=== PATIENT | female | born 2000 | race Caucasian/White ===

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

== ENCOUNTER 2023-06-27 12:32 | Emergency (ER) | payer MEDICAID ==
[~2023-06-27] VITALS: Ht 162.6 cm; Wt 98.0 kg
[2023-06-27 12:46] VITALS: BP 136/92; PULSE 73; RESP 20; TEMP 98.8; O2SAT 100
[2023-06-27 13:36] LABS: BASOPHILS % 0.4 % (0.0-2.0); HEMATOCRIT. 37.3 % (36.0-48.0); HEMOGLOBIN. 12.7 g/dL (12.0-16.0); LYMPHOCYTES % 26.1 % (20.0-50.0); MEAN CORPUSCULAR HEMOGLOBIN 27.8 pg (28.0-32.0); MEAN CORPUSCULAR VOLUME 81.5 fL (81.0-99.0); MEAN PLATELET VOLUME 7.6 fl (7.4-10.4); MONOCYTES % 8.3 % (2.0-8.0); NEUTROPHILS % 63.2 % (40.0-76.0); PLATELET 364 x1000/uL (130-400); RED BLOOD CELL COUNT 4.58 mill/uL (4.2-5.4); RED CELL DISTRIBUTION WIDTH 14.7 % (11.6-14.6)
[2023-06-27 13:45] LABS: CHLORIDE 107 mEq/L (98-107)
[2023-06-27 13:46] LABS: PROTHROMBIN TIME 10.9 sec (9.6-11.0)
== END 2023-06-27 15:55 | disposition home or self-care (01) ==
LOC: ER 12:32
DX: F41.9 Anxiety disorder, unspecified (principal); R07.89 Other chest pain; F12.10 Cannabis abuse, uncomplicated; Z88.0 Allergy status to penicillin
CPT/HCPCS: 36415; 71045; 80053; 84484; 85025; 93005; 99285

== ENCOUNTER 2024-08-27 09:17 | Emergency (ER) | payer MEDICAID ==
[~2024-08-27] VITALS: Ht 157.5 cm; Wt 99.3 kg
[2024-08-27 09:24] VITALS: O2SAT 100
[2024-08-27 09:43] VITALS: BP 130/78; PULSE 85; RESP 16; TEMP 36.78072; O2SAT 100
== END 2024-08-27 09:41 | disposition home or self-care (01) ==
LOC: ER 09:41
DX: R10.30 Lower abdominal pain, unspecified (principal); F12.10 Cannabis abuse, uncomplicated
CPT/HCPCS: 99281